=== PATIENT | female | born 1975 | race African-American/Black ===

== ENCOUNTER 2016-08-15 22:56 | Emergency (ER) | payer OTHER, BC ==
[2016-08-16] MEDS ORDERED: IBUPROFEN 600 MG TABLET PO ONE (02:50)
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
[2016-08-16 04:29] VITALS: BP 155/86
== END 2016-08-16 04:35 | disposition home or self-care (01) ==
LOC: EDBD 22:56 → ER 22:56
DX: T23.231A Burn of second degree of multiple right fingers (nail), not including thumb, initial encounter (principal); T23.161A Burn of first degree of back of right hand, initial encounter; T31.0 Burns involving less than 10% of body surface; X10.2XXA Contact with fats and cooking oils, initial encounter; Y93.G3 Activity, cooking and baking; Y92.009 Unspecified place in unspecified non-institutional (private) residence as the place of occurrence of the external cause
CPT/HCPCS: 72110; 99283